=== PATIENT | female | born 1990 | race Caucasian/White ===

== ENCOUNTER 2024-05-21 15:16 | Emergency (ER) | payer BC ==
[2024-05-21 16:03] LABS: BHCG - Serum Negative (NEGATIVE); Pregs Control Background? CLEAR/WHITE (CLR/WHITE); Pregs Control Bar Appear? YES (CONTROL BAR)
[2024-05-21 16:04] LABS: #Basophils 0.07 10x3/uL (0.0-0.2); #Eosinophils 0.32 10x3/uL (0.0-0.5); #Monocytes 0.82 10x3/uL (0.0-1.1); #Neutrophils 7.52 10x3/uL (1.5-8.4); %Basophils 0.6 % (0.0-2.0); %Eosinophils 2.7 % (0.0-6.0); %Monocytes 6.9 % (0.0-10.0); %Neutrophils 63.5 % (40.0-75.0); Hematocrit 47.5 % (34.9-44.5); Hemoglobin 15.4 g/dL (12.0-15.5); Mean Corpuscular HGB CONC 32.4 g/dL (32.0-36.0); Mean Corpuscular Hemoglobin 29.2 pg (27.0-33.0); Mean Corpuscular Volume 90.1 fL (81.6-98.3); Mean Platelet Volume 10.6 fL (7.4-10.4); Platelet Count 303 10x3/uL (150-450); Red Blood Cell (RBC) Count 5.27 10x6/uL (3.90-5.03); White Blood Cell (WBC) Count 11.85 10x3/uL (3.5-10.5)
[2024-05-21 16:08] LABS: ALT (SGPT) 32 U/L (8-55); AST (SGOT) 21 U/L (5-34); Albumin 4.3 g/dL (3.5-5.0); Alkaline Phosphatase 74 U/L (40-110); Anion Gap 12 mmol/L (10-20); BUN (Urea Nitrogen) 13 mg/dL (7.0-18.7); Bilirubin, Total 0.5 mg/dL (0.2-1.2); Calc. Creatinine Clearance 0 mL/min (70-130); Calcium 9.5 mg/dL (7.8-10.44); Carbon Dioxide 24 mmol/L (22-29); Chloride 107 mmol/L (98-107); Estimated GFR 88; Globulin 3.4 g/dL (2.4-3.5); Glucose 95 mg/dL (70-105); Magnesium 2.2 mg/dL (1.6-2.6); Potassium 3.6 mmol/L (3.5-5.1); Protein, Total 7.7 g/dL (6.0-8.3); Sodium 139 mmol/L (136-145)
[2024-05-21 16:15] LABS: Troponin I Less than 0.010 ng/mL (< 0.028)
== END 2024-05-21 16:39 | disposition home or self-care (01) ==
LOC: CSHERS 15:16
DX: I49.3 Ventricular premature depolarization (principal); R00.2 Palpitations; I10 Essential (primary) hypertension; F17.210 Nicotine dependence, cigarettes, uncomplicated
CPT/HCPCS: 71045; 80053; 83735; 83880; 84443; 84484; 84703; 85025; 93005